=== PATIENT | male | born 1950 | race Two or more races ===

== ENCOUNTER 2024-05-09 16:59 | Emergency (ER) | payer OTHER ==
[~2024-05-09] VITALS: Ht 167.6 cm; Wt 86.2 kg
[2024-05-09] MEDS ORDERED: HYDROCODONE/CHLORPHEN P-STIREX 5 ML ML PO ONE (18:30)
[2024-05-09] MEDS ORDERED: METHYLPREDNISOLONE SOD SUCC 125 MG VIAL IV ONE (18:30)
[2024-05-09] MEDS ORDERED: 0.9 % SODIUM CHLORIDE 1,000 ML IV SCH (18:30)
[2024-05-09] MEDS ORDERED: CEFTRIAXONE SODIUM 1,000 MG VIAL IV ONE (18:30)
[2024-05-09] MEDS ORDERED: LEVALBUTEROL HCL 1.25 MG/3 ML SOLUTION IH SCH (18:30)
[2024-05-09 19:08] LABS: HEMATOCRIT 45.7 % (39.0-48.0); HEMOGLOBIN 15.4 g/dL (13-16.00); MEAN CORPUSCULAR HGB CONC 33.7 g/dl (32.0-36.0); PLATELET COUNT 200 K/uL (150-450); RED BLOOD COUNT 5.31 M/uL (4.00-6.00)
[2024-05-09 19:38] LABS: ALBUMIN 3.7 gm/dL (3.4-5.0); BILIRUBIN TOTAL 0.34 mg/dL (0.3-1.2); CALCIUM 9.2 mg/dL (8.5-10.1); CREATININE SERUM 1.24 mg/dL (0.70-1.30); GFR 56.99; GLOBULINA 4.4 G/DL (2.4-3.5); POTASSIUM 4.29 mEq/L (3.5-5.1); TOTAL PROTEIN 8.1 gm/dL (6.4-8.2)
[2024-05-09 19:50] LABS: ABG PH 7.399 (7.35-7.45); ABG PO2 72.8 mmHg (80-100); ABG pCO2 41.8 mmHg (35-45); BASE EXCESS 0.4 mmol/l; BICARBONATE 25.3 mmol/l (23-25); SaO2 94.4 %; Tco2 26.6 mmol/l; allen test SATISFACTORY; puncture site RADIAL RIGHT
[2024-05-09 19:51] LABS: o2 21 %
[2024-05-09] MEDS ORDERED: KETOROLAC TROMETHAMINE 30 MG VIAL IV STA (20:18)
[2024-05-09] MEDS ORDERED: TUSNEL LIQUID178 ML PO (21:33)
[2024-05-09] MEDS ORDERED: ZITHROMAX500 MG PO (21:33)
== END 2024-05-09 22:14 | disposition home or self-care (01) ==
LOC: ER 16:59
PROVIDERS: General Practice
DX: R53.81 Other malaise (principal); J06.9 Acute upper respiratory infection, unspecified; Z20.822 Contact with and (suspected) exposure to COVID-19; I10 Essential (primary) hypertension; B20 Human immunodeficiency virus [HIV] disease
CPT/HCPCS: 36415; 71250; 82803; 94640; 96365; 96366; 99284; J0696; J1885; J3490; J7030

== ENCOUNTER 2025-05-05 10:46 | Inpatient (IN) | payer OTHER ==
[~2025-05-05] VITALS: Ht 167.6 cm; Wt 90.7 kg
[~2025-05-05 10:46] MED LIST: TUSNEL LIQUID178 ML PO; ZITHROMAX500 MG PO
--- NOTE | 2025-05-05 11:12 | NUR ---
PTE ALERTA Y ORIENTADO X 3 ESFERAS RECIBIDO EN AMBULANCIA SIN FAMILIAR POR [place] EN LA ORINA.PTE REFIERE DOLOR EN PENE Y COAGULOS AL ORINAR,NIEGA DOLOR EN FLANCOS,PARAMEDICOS REFIEREN PRESENTO HIPERTENSION Y SE LE ADMINISTRO NORMODINE 15MG IV,CANALIZADO EN BRAZO LT #20 PATENTE Y NOE DE EDEMA CON HL.SE BERNICE S/V Y SE UBICA EN MATTHEW.
[2025-05-05] MEDS ORDERED: TAMS0.4C (11:15)
[2025-05-05] MEDS ORDERED: NEURONTIN300 MG (11:15)
[2025-05-05] MEDS ORDERED: GENVOYA TABLET1 EACH (11:15)
[2025-05-05] MEDS ORDERED: AMLODIPINE-OLM1 EAC2 (11:15)
[2025-05-05 14:14] LABS: BASO % 0.3 % (0.1-1.2); EOS # 0.03 (0.04-0.54); EOS % 0.2 % (0.7-7.0); LYMPH # 1.81 (1.18-3.74); LYMPH % 13.4 % (19.3-53.1); MEAN PLATELET VOLUME 10.80 fl (9.4-12.4); MONO # 1.11 (0.24-0.82); MONO % 8.2 % (4.7-12.5); NEUT # 10.48 (1.56-6.13); NEUT % 77.6 % (34.0-71.1); RED CELL DISTRIBUTION WIDTH 15.0 % (11.6-14.4)
[2025-05-05 14:36] LABS: INR 1.03
[2025-05-05 14:41] LABS: ALT/SGPT 27.0 U/L (12-78); AST/SGOT 14.0 U/L (15-37); BILIRUBIN TOTAL 0.59 mg/dL (0.3-1.2); BUN CREA RATIO 15.0 (7.0-25.0); CREATININE SERUM 1.09 mg/dL (0.70-1.30); GFR 65.95; GLOBULINA 4.7 G/DL (2.4-3.5); GLUCOSE FASTING 120.0 mg/dL (65-100); OSMOLALITY SERUM 278.0 MOSM/KG (275-295)
[2025-05-05 14:43] LABS: ERYTHROCYTE SEDIMENTATION RATE 53 mm/hr (0-20)
--- NOTE | 2025-05-05 14:58 | NUR ---
SE ORIENTA PTE SOBRE XT MEDICO EL CUAL REFIERE ENTENDER.SE LE EXTRAEN MUESTRAS BAJO MEDIDAS ASEPTICAS,SE CANALIZA Y SE INSERTA SHORT REGULAR YA QUE 3-WAY NO ENTRA EN URETRA,SE REALIZA IRRIGACION Y PRESENTA COAGULOS,SE NOTIFICA A DRA GAMA.
[2025-05-05 15:22] LABS: URINE APPEARANCE Turbid; URINE BILIRRUBIN Small (NEGATIVE); URINE BLOOD Large; URINE COLOR Red; URINE GLUCOSE Negative (NEGATIVE); URINE KETONE Negative (NEGATIVE); URINE LEUKOCYTE Moderate; URINE NITRATE Positive; URINE UROBILINOGEN 0.2 E.U./dl
[2025-05-05 15:28] LABS: URINE BACTERIA 938.3 uL (0.0-1933); URINE EPITHELIAL CELLS 4.7 uL (0.0-38.8); URINE WBC 1993.0 uL (0.0-23.2)
[2025-05-05 15:53] LABS: TYPE CELLS RENAL TUBULAR; URINE CAST 0.73 uL (0.0-1.40); URINE PROTEIN 300 (NEGATIVE); URINE RBC > 10558.9 uL (0.0-20.8)
[2025-05-05] MEDS ORDERED: CEFTRIAXONE SODIUM 2,000 MG VIAL IV STA (18:30)
[2025-05-05] MEDS ORDERED: TAMSULOSIN HCL 0.4 MG CAP PO STA (18:30)
[2025-05-05] MEDS ORDERED: 0.9 % SODIUM CHLORIDE 1,000 ML IV SCH ×2 (18:30→22:00)
[2025-05-05] MEDS ORDERED: PHENAZOPYRIDINE HCL 100 MG TABLET PO STA (18:31)
[2025-05-05] MEDS ORDERED: MORPHINE SULFATE 4 MG/ML CARTRIDGE IV STA (18:31)
[2025-05-05] MEDS ORDERED: CEFTRIAXONE SODIUM 2,000 MG in 0.9 % SODIUM CHLORIDE 100 ML IV SCH (21:49)
[2025-05-05] MEDS ORDERED: FAMOTIDINE/PF 20 MG in 0.9 % SODIUM CHLORIDE 8 ML IV PUSH SCH (21:50)
[2025-05-05] MEDS ORDERED: GABAPENTIN 300 MG CAPSULE PO SCH (21:50)
[2025-05-05] MEDS ORDERED: TAMSULOSIN HCL 0.4 MG CAP PO SCH (21:58)
[2025-05-05] MEDS ORDERED: ONDANSETRON HCL 4 MG in 0.9 % SODIUM CHLORIDE 50 ML IV PRN (22:00)
[2025-05-05] MEDS ORDERED: ACETAMINOPHEN 500 MG GEL..CAP PO PRN (22:00)
[2025-05-06] MEDS ORDERED: AMLODIPINE BESYLATE 2.5 MG TABLET PO SCH (09:00)
[2025-05-06] MEDS ORDERED: ELVITEG/COBI/EMTRIC/TENOFO ALA 1 EACH TABLET PO SCH (09:00)
[2025-05-06 16:43] VITALS: BP 126/80; O2SAT 95
[2025-05-07 01:03] VITALS: BP 123/76; O2SAT 97
[2025-05-07 08:00] VITALS: BP 172/95; O2SAT 96
[2025-05-07] MEDS ORDERED: ENALAPRILAT DIHYDRATE 1.25 MG/ML VIAL IV PRN (12:45)
[2025-05-07 13:20] VITALS: BP 166/113
[2025-05-07 16:34] VITALS: BP 113/81; O2SAT 95
[2025-05-07] MEDS ORDERED: FAMOTIDINE/PF 20 MG in 0.9 % SODIUM CHLORIDE 8 ML IV PUSH SCH (21:00)
[2025-05-08 00:30] VITALS: BP 142/81; O2SAT 97
[2025-05-08 08:00] VITALS: BP 153/95; O2SAT 97
[2025-05-08 08:40] LABS: BASO % 0.6 % (0.1-1.2); EOS # 0.26 (0.04-0.54); EOS % 4.8 % (0.7-7.0); LYMPH # 1.75 (1.18-3.74); LYMPH % 32.3 % (19.3-53.1); MEAN PLATELET VOLUME 11.10 fl (9.4-12.4); MONO # 0.73 (0.24-0.82); NEUT # 2.62 (1.56-6.13); NEUT % 48.4 % (34.0-71.1); RED CELL DISTRIBUTION WIDTH 15.0 % (11.6-14.4)
[2025-05-08 08:52] LABS: MONO % 13.5 % (4.7-12.5)
[2025-05-08] MEDS ORDERED: AMLODIPINE BESYLATE 5 MG TABLET PO SCH (09:00)
[2025-05-08 16:00] VITALS: BP 143/88; O2SAT 96
[2025-05-09] VITALS: BP 122/81; O2SAT 95
[2025-05-09 08:31] VITALS: BP 131/71; O2SAT 96
[2025-05-09 10:07] LABS: hav igm Negative (Negative); hep b c Negative (Negative); hep b s ag Negative (Negative)
[2025-05-09 16:49] VITALS: BP 143/88; O2SAT 96
== END 2025-05-09 18:45 | DRG 690 ==
LOC: ER 10:46 → SURH 05-06 00:12 → SEC-K 05-06 00:12 → SURH 05-06 09:13
PROVIDERS: Physician Assistant Medical; Student in an Organized Health Care Education/Training Program; ADMIT Student in an Organized Health Care Education/Training Program; ATTEND Student in an Organized Health Care Education/Training Program
PROC: BW21YZZ Computerized Tomography (CT Scan) of Abdomen and Pelvis using Other Contrast (ICD-10-PCS; principal; 2025-05-05)
DX: N39.0 Urinary tract infection, site not specified (principal); N41.0 Acute prostatitis; B20 Human immunodeficiency virus [HIV] disease